=== PATIENT | female | born 1980 | race Caucasian/White ===

== ENCOUNTER → 2020-03-14 07:49 | Emergency (ER) | payer OTHER ==
--- NOTE | 2020-03-14 08:41 | RAD ---
Portable chest: HISTORY: Cough COMPARISON: none FINDINGS: Lung morales are clear. Heart and mediastinum appear unremarkable. Vascularity is normal. Visualized osseous structures unremarkable. IMPRESSION: No acute finding
[2020-03-14 19:12] LABS: SARS-CoV-2 MS2 Positive; SARS-CoV-2 N Gene Negative; SARS-CoV-2 S Gene Negative; SARS-CoV-2 by NAA Not Detected (NotDetected); SARS-CoV-2 orf1ab Negative
== END | disposition home or self-care (01) ==
LOC: ERS 07:49
DX: J02.9 Acute pharyngitis, unspecified (principal); J04.0 Acute laryngitis; Z20.828 Contact with and (suspected) exposure to other viral communicable diseases
CPT/HCPCS: 71045; 87635; U0003